=== PATIENT | male | born 1970 | race Caucasian/White ===

== ENCOUNTER 2017-04-24 14:21 | Emergency (ER) | payer OTHER ==
[~2017-04-24 14:21] MED LIST: COLACE100 M1 PO; CYCLOBENZAPRINE10 M1 PO; MULTIVITAMINS1 EAC6 PO; PERCOCET 5-3251 EACH PO; SENOKOT-S TABL1 EACH PO; VIMOVO DR 500-1 EAC1 PO
[2017-04-24] MEDS ORDERED: NO HOME MEDICATION XX (14:45)
== END 2017-04-24 16:54 ==
LOC: EDMED 14:21
DX: M54.5 Low back pain (principal); Z88.2 Allergy status to sulfonamides; V49.40XA Driver injured in collision with unspecified motor vehicles in traffic accident, initial encounter; Y92.410 Unspecified street and highway as the place of occurrence of the external cause